=== PATIENT | female | born 1935 | race Caucasian/White ===

== ENCOUNTER 2017-04-11 07:25 | Emergency (ER) | payer MEDICARE, BC ==
[~2017-04-11] VITALS: Ht 160 cm; Wt 75.0 kg
[~2017-04-11 07:25] MED LIST: AMLO5TAB96 PO; ASPI325T PO; CEPH500C3 PO; GLYB1TAB51 PO; HYDR50TA5 PO; LANTUSP SQ; METF-324 PO; QUIN20TA22 PO; SIMV20 PO; TOPR50TA PO
[2017-04-11 07:33] VITALS: BP 156/82; PULSE 65; RESP 18; TEMP 98.3; O2SAT 100
--- NOTE | 2017-04-11 07:36 | PD ---
HPI Chief Complaint: Chest Pain Time Seen by Provider: 07:28 Travel History International Travel<30 days: No Contact w/Intl Traveler<30days: No Traveled to known affect area: No History of Present Illness HPI 81-year-old female complains of chest pain and left arm pain. Patient states that the left arm pain started yesterday afternoon. Patient states that the pain aching pain localized to left arm. Patient denies any pain radiation. Patient denies any injury to left arm. Patient states that she had a short period of left-sided chest pain last night. Patient states the pain aching pain localized to left chest. Patient denies any pain radiation. Patient states that the pain lasted about 10 minutes and resolved completely. Patient has history of UT in the past. Patient status post pacemaker placement. Patient does not know the reason why she has a pacemaker in place. Patient has history hypertension, diabetes, hyperlipidemia. Patient is a nonsmoker. Patient has family history of heart disease. On a scale of 1-10 the left arm pain is a 5. PFSH Past Medical History Heart Rhythm Problems: Yes Cancer: No Cardiovascular Problems: Yes High Cholesterol: Yes Chest Pain: Yes Diabetes: Yes Endocrine: Yes Genitourinary: No Hypertension: Yes Musculoskeletal: No Neurologic: No Psychiatric: No Reproductive: No Respiratory: Yes Menopausal: Yes Past Surgical History Gynecologic Surgery: Yes (HYSTERECTYOMY) Hysterectomy: Yes Family History Family Hypercholesterolemia: Yes Social History Alcohol Use: No Tobacco Use: No Substance Use: No Allergies-Medications (Allergen,Severity, Reaction): Coded Allergies: No Known Allergies (Verified , 04/11/17) Reported Meds & Prescriptions Reported Meds & Active Scripts Active Reported Tia Allergy (Fexofenadine HCl) 180 Mg Tab 180 Mg PO DAILY Warfarin 5 Mg Tab 5 Mg PO S,T,W,TH,S Warfarin 2.5 Mg Tab 2.5 Mg PO MON/FRI Simvastatin 20 Mg Tab 20 Mg PO DAILY Klor-Con 10 (Potassium Chloride) 10 Meq Tab 20 Meq PO DAILY Metformin (Metformin HCl) 1,000 Mg Tab 1,000 Mg PO BIDPC With meals Furosemide 40 Mg Tab 40 Mg PO DAILY Metoprolol Tartrate 75 Mg Tab 75 Mg PO DAILY Lantus Inj (Insulin Glargine) 1,000 Unit/10 Ml Vial 36 Units SQ HS Review of Systems General / Constitutional: No: Fever Eyes: No: Visual changes HENT: No: Headaches Cardiovascular: Positive: Chest Pain or Discomfort Respiratory: No: Shortness of Breath Gastrointestinal: No: Abdominal Pain Genitourinary: No: Dysuria Musculoskeletal: Positive: Pain Skin: No Rash Neurologic: No: Weakness Psychiatric: No: Depression Endocrine: No: Polydipsia Hematologic/Lymphatic: No: Easy Bruising Physical Exam Narrative GENERAL: Well-nourished, well-developed patient. SKIN: Focused skin assessment warm/dry. HEAD: Normocephalic. EYES: No scleral icterus. No injection or drainage. NECK: Supple, trachea midline. No JVD or lymphadenopathy. CARDIOVASCULAR: Regular rate and rhythm without murmurs, gallops, or rubs. RESPIRATORY: Breath sounds equal bilaterally. No accessory muscle use. GASTROINTESTINAL: Abdomen soft, non-tender, nondistended. MUSCULOSKELETAL: No cyanosis, or edema. No tenderness on palpation left arm. Full range of motion of the left arm. BACK: Nontender without obvious deformity. No CVA tenderness. Neurologic exam normal. Data Data Last Documented VS Vital Signs Date Time Temp Pulse Resp B/P (MAP) Pulse Ox O2 Delivery O2 Flow Rate FiO2 04/11/17 07:49 59 18 98 Room Air 04/11/17 07:48 136/53 (80) 04/11/17 07:33 98.3 Orders Orders Complete Blood Count With Diff (04/11/17 07:31) Comprehensive Metabolic Panel (04/11/17 07:31) Creatine Kinase (Cpk) (04/11/17 07:31) Troponin I (04/11/17 07:31) B-Type Natriuretic Peptide (04/11/17 07:31) Prothrombin Time / Inr (Pt) (04/11/17 07:31) Act Partial Throm Time (Ptt) (04/11/17 07:31) Urinalysis - C+S If Indicated (04/11/17 07:31) Chest, Single Ap (04/11/17 07:31) Iv Access Insert/Monitor (04/11/17 07:31) Ecg Monitoring (04/11/17 07:31) Oximetry (04/11/17 07:31) Labs Laboratory Tests Test 04/11/17 07:40 White Blood Count 6.9 TH/MM3 Red Blood Count 3.68 MIL/MM3 Hemoglobin 12.2 GM/DL Hematocrit 37.6 % Mean Corpuscular Volume 102.1 FL Mean Corpuscular Hemoglobin 33.2 PG Mean Corpuscular Hemoglobin Concent 32.5 % Red Cell Distribution Width 17.9 % Platelet Count 178 TH/MM3 Mean Platelet Volume 8.4 FL Neutrophils (%) (Auto) 72.8 % Lymphocytes (%) (Auto) 14.2 % Monocytes (%) (Auto) 8.3 % Eosinophils (%) (Auto) 1.7 % Basophils (%) (Auto) 3.0 % Neutrophils # (Auto) 5.0 TH/MM3 Lymphocytes # (Auto) 1.0 TH/MM3 Monocytes # (Auto) 0.6 TH/MM3 Eosinophils # (Auto) 0.1 TH/MM3 Basophils # (Auto) 0.2 TH/MM3 CBC Comment AUTO DIFF Prothrombin Time 21.4 SEC Prothromb Time International Ratio 1.9 RATIO Activated Partial Thromboplast Time 37.3 SEC Blood Urea Nitrogen 15 MG/DL Creatinine 0.84 MG/DL Random Glucose 96 MG/DL Total Protein 7.2 GM/DL Albumin 3.8 GM/DL Calcium Level 8.5 MG/DL Alkaline Phosphatase 98 U/L Aspartate Amino Transf (AST/SGOT) 24 U/L Alanine Aminotransferase (ALT/SGPT) 13 U/L Total Bilirubin 1.3 MG/DL Sodium Level 141 MEQ/L Potassium Level 3.9 MEQ/L Chloride Level 107 MEQ/L Carbon Dioxide Level 25.2 MEQ/L Anion Gap 9 MEQ/L Estimat Glomerular Filtration Rate 65 ML/MIN Total Creatine Kinase 96 U/L Troponin I LESS THAN 0.02 NG/ML B-Type Natriuretic Peptide 228 PG/ML MDM Medical Decision Making Medical Screen Exam Complete: Yes Emergency Medical Condition: Yes Interpretation(s) 8:20 AM. EKG shows pacer rhythm. Cardiac enzymes are normal. Chest x-ray showed chronic changes. Differential Diagnosis Differential diagnosis including musculoskeletal, angina, UT, PE, pneumothorax. Narrative Course 81-year-old female with persistent left arm pain and transient left-sided chest pain. History of CAD. Patient was advised to be admitted to the chest pain center. Patient refuses admission. Patient wants to go home. Diagnosis Primary Impression: Chest pain Qualified Codes: R07.9 - Chest pain, unspecified Patient Instructions: General Instructions Additional Instructions: Continue with all medications. Follow-up with personal physician. Return as needed. Return immediately if increasing chest pain shortness of breath. Med/Other Pt SpecificInfo: No Change to Meds Disposition: 01 DISCHARGE HOME Condition: Stable Cristofer Hull MD Apr 11, 2017 07:36
[2017-04-11 07:48] VITALS: BP 136/53; PULSE 59; RESP 18; O2SAT 98
[2017-04-11 07:48] LABS: BASOPHIL # 0.2 TH/MM3 (0-0.2); EOSINOPHIL # 0.1 TH/MM3 (0-0.4); EOSINOPHIL % 1.7 % (0.0-4.0); HEMATOCRIT 37.6 % (35.0-46.0); LYMPH % 14.2 % (9.0-44.0); MEAN CELL VOLUME 102.1 FL (80.0-100.0); MEAN CORPUSCULAR HEMOGLOBIN 33.2 PG (27.0-34.0); MEAN CORPUSCULAR HGB CONC 32.5 % (32.0-36.0); MONO % 8.3 % (0.0-8.0); NEUT % 72.8 % (16.0-70.0); PLATELET COUNT 178 TH/MM3 (150-450); RED BLOOD COUNT 3.68 MIL/MM3 (4.00-5.30); RED CELL DISTRIBUTION WIDTH 17.9 % (11.6-17.2); WHITE BLOOD COUNT 6.9 TH/MM3 (4.0-11.0)
[2017-04-11 07:50] LABS: HEMO FLAGS AUTO DIFF
[2017-04-11] MEDS ORDERED: FEXO15TA PO (07:54)
[2017-04-11] MEDS ORDERED: WARF-23 PO (07:54)
[2017-04-11] MEDS ORDERED: FURO40TA PO (07:54)
[2017-04-11] MEDS ORDERED: SIMV20TA PO (07:54)
[2017-04-11] MEDS ORDERED: POTA-243 PO (07:54)
[2017-04-11] MEDS ORDERED: LANTUS2P SQ (07:54)
[2017-04-11] MEDS ORDERED: METF1000 PO (07:54)
[2017-04-11] MEDS ORDERED: WARF-18 PO (07:54)
[2017-04-11] MEDS ORDERED: METO-426 PO (07:54)
[2017-04-11 07:56] LABS: CHLORIDE 107 MEQ/L (98-107); POTASSIUM 3.9 MEQ/L (3.5-5.1); SODIUM (NA) 141 MEQ/L (136-145)
[2017-04-11 08:00] LABS: ANION GAP 9 MEQ/L (5-15); BICARBONATE 25.2 MEQ/L (21.0-32.0); BLOOD UREA NITROGEN 15 MG/DL (7-18)
[2017-04-11 08:01] LABS: APTT (PATIENT) 37.3 SEC (24.3-30.1); INTERNATIONAL NORMALIZED RATIO 1.9 RATIO; PROTHROMBIN TIME - PATIENT 21.4 SEC (9.8-11.6)
[2017-04-11 08:03] LABS: ALT (GPT) 13 U/L (10-53); AST (GOT) 24 U/L (15-37); GLOMERULAR FILTRATION RATE 65 ML/MIN (>89)
[2017-04-11 08:05] LABS: TOTAL BILIRUBIN ADULT 1.3 MG/DL (0.2-1.0)
[2017-04-11 08:06] LABS: ALKALINE PHOSPHATASE 98 U/L (45-117)
[2017-04-11 08:09] LABS: CREATINE KINASE 96 U/L (26-192)
--- NOTE | 2017-04-11 08:26 | RADRPT ---
EXAM DATE/TIME: 04/11/2017 07:45 [facility] COMPARISON: CHEST SINGLE AP, April 05, 2011, 14:35. INDICATIONS : Left arm & chest pain. MEDICAL HISTORY : Myocardial infarction. Hypercholesterolemia. Hypertension. Irregular heart beat. Dyspnea. Diabeti c. SURGICAL HISTORY : Pacemaker. Hysterectomy. ENCOUNTER: Initial ACUITY: 1 day PAIN SCORE: 5/10 LOCATION: Left chest FINDINGS: A single portable frontal view the chest shows moderate cardiomegaly. There is pulmonary vascular eng orgement. Mild interstitial prominence but less pronounced from the prior exam. No effusions. Right-s ided pacing device. CONCLUSION: Cardiomegaly with pulmonary mass or origin and mild interstitial prominence suggesting interstitial e mary. This is less pronounced from the prior study. Tomasz Boyce Jr., MD on April 11, 2017 at 8:24 Board Certified Radiologist. This report was verified electronically.
[2017-04-11 08:29] LABS: KERATOCYTES OCC (NORMAL); OVALOCYTES 1+ (NORMAL); SCAN/DIFF AUTO DIFF CONFIRMED
--- NOTE | 2017-04-13 01:25 | EKG ---
Date Performed: 04/11/2017 Time Performed: 07:31:53 PTAGE: 81 years EKG: ELECTRONIC VENTRICULAR PACEMAKER ABNORMAL RHYTHM ECG PREVIOUS TRACING : 04/06/2011 07.16 Compared to prior tracing no significant change DOCTOR: Lisandro Peralta Interpretating Date/Time 04/13/2017 01:24:15
== END 2017-04-11 08:32 | disposition home or self-care (01) ==
LOC: PHED 07:25
DX: R07.9 Chest pain, unspecified (principal); I10 Essential (primary) hypertension; E11.9 Type 2 diabetes mellitus without complications; I25.2 Old myocardial infarction; E78.00 Pure hypercholesterolemia, unspecified; Z95.0 Presence of cardiac pacemaker; I25.10 Atherosclerotic heart disease of native coronary artery without angina pectoris
CPT/HCPCS: 71010; 80053; 82550; 83880; 84484; 85025; 85610; 85730; 93005; 99284